=== PATIENT | female | born 1980 | race African-American/Black ===

== ENCOUNTER 2016-07-28 23:45 | Emergency (ER) | payer OTHER ==
[~2016-07-28] VITALS: Ht 167.6 cm; Wt 70.3 kg
[2016-07-29] MEDS ORDERED: NKM (00:04)
[2016-07-29 00:20] VITALS: BP 139/91
[2016-07-29 00:40] LABS: APPEARANCE,URINE CLEAR; KETONES,URINE NEGATIVE (NEGATIVE); LEUKOCYTE ESTERASE ,URINE NEGATIVE (NEGATIVE); NITRITE,URINE NEGATIVE (NEGATIVE); PH,URINE 6.5 (4.5-8.0); PROTEIN,URINE NEGATIVE (NEGATIVE); UROBILINOGEN,URINE 1 MG/DL (0.0-1.0)
[2016-07-29] MEDS ORDERED: PEPCID20 MG ORAL (01:43)
[2016-07-29] MEDS ORDERED: MELOXICAM7.5 MG PO (01:43)
[2016-07-29 02:25] VITALS: BP 139/91
--- NOTE | 2016-07-29 09:02 | Diagnostic Imaging Report ---
Indications: Right knee injury, pain Technique: 3 views right knee. Findings: Comparison: None No fracture, dislocation, joint space widening or effusion , surrounding soft tissue swelling/foreign body/gas, or other acute changes are identified. IMPRESSION: No evidence of acute injury to the right knee.
--- NOTE | 2016-07-29 09:04 | Diagnostic Imaging Report ---
Indications: Right wrist injury, pain Technique: 3 views right wrist. Findings: Comparison: None No fracture, dislocation, joint space widening , surrounding soft tissue swelling/foreign body/gas, or other acute changes are identified. Capitate and hamate are fused. Fusion of the third carpometacarpal joint may be present. The trapezoid appears somewhat hypoplastic. 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
--- NOTE | 2016-07-29 09:05 | Diagnostic Imaging Report ---
Indication: Chest pain Technique: Single AP view of the chest. Findings: Comparison: None. The bones and extra pulmonary soft tissues, cardiomediastinal silhouette, pulmonary vasculature and parenchyma, and pleural surfaces are unremarkable. IMPRESSION: Negative AP chest.
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
== END 2016-07-29 02:25 | disposition home or self-care (01) ==
LOC: EMR 07-29 00:46
DX: S60.211A Contusion of right wrist, initial encounter (principal); S80.01XA Contusion of right knee, initial encounter; Y08.89XA Assault by other specified means, initial encounter; Y92.89 Other specified places as the place of occurrence of the external cause; Y99.0 Civilian activity done for income or pay; Z88.0 Allergy status to penicillin
CPT/HCPCS: 29260; 71010; 81003; 81025; 99284

== ENCOUNTER 2017-11-19 20:50 | Emergency (ER) | payer OTHER ==
[~2017-11-19] VITALS: Ht 167.6 cm; Wt 77.1 kg
[~2017-11-19 20:50] MED LIST: MELOXICAM7.5 MG PO; NKM; PEPCID20 MG ORAL
--- NOTE | 2017-11-19 21:35 | Emergency Room Report ---
History of Present Illness General Chief Complaint: General Complaint Source: Patient Present Illness HPI Is a 36-year-old female with history of back pain/spasm. She presents with chief complaint of left leg numbness and pain. The whole leg is hurting and felt numb. Similar symptom in the past. Also with back pain. Known, as bowel or urine. No trauma. She does have some dysuria and frequency. Pain is 8 out of 10. Worse with walking. Better with rest. Allergies: Coded Allergies: PENICILLINS (Verified Allergy, Unknown, 07/29/16) Patient History Past Medical History: see triage record, old chart reviewed Past Surgical History: Pertinent Family History: none Last Menstrual Period: September Now: No Immunizations: other Reviewed Nursing Documentation: PMH: Agreed; PSxH: Agreed Nursing Documentation-PMH Hx Asthma: Yes - broncitis Review of Systems Eye: Denies: eye pain, blurred vision ENT: Denies: ear pain, nose congestion, throat swelling Respiratory: Denies: cough, shortness of breath Cardiovascular: Denies: chest pain, palpitations Gastrointestinal: Denies: abdominal pain, diarrhea, nausea, vomiting Musculoskeletal: Reports: back pain, muscle pain; Denies: joint pain Skin: Denies: rash Neurological: Denies: headache, numbness Endocrine: Denies: increased thirst, increased urine Hematologic/Lymphatic: Denies: easy bruising All Other Systems: negative except mentioned in HPI Physical Exam Vital Signs Date Time Temp Pulse Resp B/P (MAP) Pulse Ox O2 Delivery O2 Flow Rate FiO2 11/19/17 21:20 98.2 76 16 144/91 100 Room Air 98.2 vitals normal Sp02 EP Interpretation: reviewed, normal General Appearance: well appearing, no apparent distress, alert Head: normocephalic, atraumatic Eyes: bilateral eye PERRL, bilateral eye EOMI ENT: hearing grossly normal, normal pharynx Neck: full range of motion, supple, no meningismus Respiratory: chest non-tender, lungs clear, normal breath sounds Cardiovascular #1: regular rate, rhythm, no murmur Gastrointestinal: normal bowel sounds, non tender, no mass, no organomegaly, no bruit, non-distended Musculoskeletal: back normal - Tenderness to palpation the lower back, gait/ station normal, normal range of motion Neurologic: alert, oriented x3 Psychiatric: mood/affect normal Skin: warm/dry Medical Decision Making Diagnostic Impression: Primary Impression: UTI (urinary tract infection) Qualified Codes: N30.00 - Acute cystitis without hematuria Additional Impression: Lumbar radiculopathy, acute ER Course Patient presents with lumbar radiculopathy. No evidence of cauda equina syndrome, spinal after abscess or neoplastic process. We'll discharge home with pain medication and steroid. She also has a UTI. No evidence of pyelonephritis. Patient may benefit from MRI because of continual and episodic pain. Last Vital Signs Date Time Temp Pulse Resp B/P (MAP) Pulse Ox O2 Delivery O2 Flow Rate FiO2 11/19/17 21:20 98.2 76 16 144/91 100 Room Air 98.2 Status: improved Disposition: HOME, SELF-CARE Condition: Stable Scripts Cephalexin* (KEFLEX*) 500 Mg Capsule 500 MG ORAL TID, #21 CAP Prov: MECHE MATHEW M.D. 11/19/17 Hydrocodone/Acetaminophen 5-325* (HYDROCODONE/ACETAMINOPHEN 5-325*) 1 Each Tablet 1 TAB ORAL Q6H PRN for For Pain, #20 TAB 0 Refills Prov: MECHE MATHEW M.D. 11/19/17 Additional Instructions: Follow-up with your doctor in 7 days for recheck. You may benefit from an MRI if back pain continue. Return if symptom worsen. MECHE MATHEW M.D. Nov 19, 2017 21:35
[2017-11-19] MEDS ORDERED: Norco 5mg/325mg tab ORAL ONE (21:45)
[2017-11-19 21:54] LABS: APPEARANCE,URINE CLOUDY; BILIRUBIN, URINE NEGATIVE (NEGATIVE); COLOR,URINE AMBER; GLUCOSE, URINE (UA) NEGATIVE (NEGATIVE); KETONES,URINE NEGATIVE (NEGATIVE); LEUKOCYTE ESTERASE ,URINE 1+ (NEGATIVE); NITRITE,URINE POSITIVE (NEGATIVE); PH,URINE 5 (4.5-8.0); PROTEIN,URINE 1+ (NEGATIVE); UROBILINOGEN,URINE NORMAL MG/DL (0.0-1.0)
[2017-11-19] MEDS ORDERED: Cephalexin 500mg cap ORAL ONE (22:15)
[2017-11-19] MEDS ORDERED: CEPHALEXIN500 MG ORAL (22:23)
[2017-11-19] MEDS ORDERED: HYDROCODON-ACE1 EA15 ORAL (22:23)
[2017-11-20 00:36] VITALS: BP 144/91
[2017-11-20 00:38] VITALS: BP 0/0
== END 2017-11-19 22:35 | disposition home or self-care (01) ==
LOC: EMR 21:40
DX: N39.0 Urinary tract infection, site not specified (principal); M54.16 Radiculopathy, lumbar region
CPT/HCPCS: 81003; 81025; 87086; 87181; 99283

== ENCOUNTER 2018-02-08 11:25 | Emergency (ER) | payer OTHER ==
[~2018-02-08] VITALS: Ht 167.6 cm; Wt 87.5 kg
[~2018-02-08 11:25] MED LIST changes: +CEPHALEXIN500 MG ORAL; +HYDROCODON-ACE1 EA15 ORAL
[2018-02-08 12:05] VITALS: BP 148/87
[2018-02-08] MEDS ORDERED: BACTRIM DS TAB1 EAC1 ORAL (12:31)
[2018-02-08] MEDS ORDERED: OFLOXACIN5 ML RIGHT EAR (12:31)
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
== END 2018-02-08 12:35 | disposition home or self-care (01) ==
LOC: EMR 12:18
DX: H60.61 Unspecified chronic otitis externa, right ear (principal); Z88.0 Allergy status to penicillin; J45.909 Unspecified asthma, uncomplicated
CPT/HCPCS: 99282

== ENCOUNTER 2018-07-05 09:22 | Emergency (ER) | payer OTHER ==
[~2018-07-05] VITALS: Ht 167.6 cm; Wt 91.6 kg
[~2018-07-05 09:22] MED LIST changes: +BACTRIM DS TAB1 EAC1 ORAL; +OFLOXACIN5 ML RIGHT EAR
[2018-07-05] MEDS ORDERED: NKM (09:30)
[2018-07-05 09:43] VITALS: BP 143/85
[2018-07-05] MEDS ORDERED: Acetaminophen 500mg (ES) tab ORAL ONE (09:45)
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
--- NOTE | 2018-07-05 09:52 | NUR ---
ED Nurse Note: pt walked in from home c/o headache for a few days. ermd eval done will follow orders . pt ambulated to restroom with strong and steady gait.
--- NOTE | 2018-07-05 10:14 | NUR ---
ED Nurse Note: blood and urine sent to lab
[2018-07-05 10:17] VITALS: BP 98/85
[2018-07-05 10:28] LABS: ANION GAP 13 mmol/L (5-15); BLOOD UREA NITROGEN 8 mg/dL (7-18); CALCIUM 8.7 MG/DL (8.5-10.1); CARBON DIOXIDE 24 MMOL/L (21-32); CHLORIDE 104 MMOL/L (98-107); CREATININE 0.9 MG/DL (0.55-1.30); POTASSIUM 3.9 MMOL/L (3.5-5.1); SODIUM 141 MMOL/L (136-145)
[2018-07-05 10:32] LABS: APPEARANCE,URINE CLEAR; BILIRUBIN, URINE NEGATIVE (NEGATIVE); COLOR,URINE PALE YELLOW; GLUCOSE, URINE (UA) NEGATIVE (NEGATIVE); KETONES,URINE NEGATIVE (NEGATIVE); LEUKOCYTE ESTERASE ,URINE NEGATIVE (NEGATIVE); NITRITE,URINE NEGATIVE (NEGATIVE); PH,URINE 6 (4.5-8.0); PROTEIN,URINE NEGATIVE (NEGATIVE); UROBILINOGEN,URINE NORMAL MG/DL (0.0-1.0)
[2018-07-05 10:36] LABS: BASOPHILS % (AUTO) 1.7 % (0.0-2.0); EOSINOPHILS % (AUTO) 10.1 % (0.0-3.0); HEMATOCRIT 38.2 % (37.0-47.0); HEMOGLOBIN 12.5 G/DL (12.0-16.0); LYMPHOCYTES % (AUTO) 42.5 % (20.0-45.0); MEAN CORPUSCULAR VOLUME 87 FL (80-99); MONOCYTES % (AUTO) 7.3 % (1.0-10.0); NEUTROPHILS % (AUTO) 38.4 % (45.0-75.0); PLATELET COUNT 247 K/UL (150-450); RED BLOOD COUNT 4.37 M/UL (4.20-5.40); RED CELL DISTRIBUTION WIDTH 13.2 % (11.6-14.8); WHITE BLOOD COUNT 5.2 K/UL (4.8-10.8)
[2018-07-05 10:41] LABS: ALANINE AMINOTRANSFERASE 18 U/L (12-78); ALBUMIN 3.6 G/DL (3.4-5.0); ALBUMIN/GLOBULIN RATIO 0.9 (1.0-2.7); ALKALINE PHOSPHATASE 74 U/L (46-116); ASPARTATE AMINO TRANSFERASE 12 U/L (15-37); BILIRUBIN,TOTAL 0.4 MG/DL (0.2-1.0); CREATINE KINASE 186 U/L (26-308)
--- NOTE | 2018-07-05 10:45 | NUR ---
ED Nurse Note: notified Dr. Sanchez that UA PREG IS NEG.
--- NOTE | 2018-07-05 10:52 | NUR ---
ED Nurse Note: pt sitting up in bed on monitor and cell phione . pt states pain 5/10 . ermd informed.
--- NOTE | 2018-07-05 10:52 | Diagnostic Imaging Report ---
Indication: Shortness of breath Technique: One view of the chest Comparison: 07/29/2016 Findings: Lungs and pleural spaces are clear. Heart size is normal. No significant interim change Impression: No acute process
[2018-07-05 14:49] VITALS: BP 132/81
--- NOTE | 2018-07-05 14:49 | NUR ---
ED Nurse Note: pt back from imaging.
--- NOTE | 2018-07-05 14:58 | Diagnostic Imaging Report ---
Indication: Headache for 3 days, hypertension Technique: sagittal T1 fast spin echo, axial T1 FLAIR, axial T2 FLAIR, axial T2 FS PROPELLER, axial T2* GRE, axial diffusion weighted images. ADC and exponential ADC maps generated Comparison: none Findings: No abnormal areas of restricted diffusion to suggest acute infarction. No acute hemorrhage or edema. No mass effect nor midline shift. Normal size ventricles and extra axial CSF spaces. There is near complete opacification of the right maxillary sinus. Extensive disease is seen in the sphenoid and ethmoid sinuses as well. Occasional punctate foci of deep white matter high T2 signal are demonstrated bilaterally. Impression: Negative for acute intracranial bleed, mass effect, or infarct There are a few nonspecific bilateral T2 hyperintensities Sinus disease
[2018-07-05] MEDS ORDERED: TRAMADOL HCL50 MG ORAL (15:12)
[2018-07-05 15:27] VITALS: BP 135/82
--- NOTE | 2018-07-05 15:28 | NUR ---
ER DISCHARGE NOTE: Patient is cleared to be discharged per ERMD, pt is aox4, on room air, with stable vital signs. pt was given dc and prescription instructions, pt was able to verbalize understanding, pt id band and iv site removed without complications. pt is able to ambulate with steady gait. pt took all belongings.
== END 2018-07-05 15:28 | disposition home or self-care (01) ==
LOC: EMR 09:48
DX: G44.209 Tension-type headache, unspecified, not intractable (principal); M71.22 Synovial cyst of popliteal space [Baker], left knee; H72.91 Unspecified perforation of tympanic membrane, right ear; F43.9 Reaction to severe stress, unspecified; I10 Essential (primary) hypertension; Z88.0 Allergy status to penicillin; J32.9 Chronic sinusitis, unspecified
CPT/HCPCS: 36415; 70551; 71045; 80053; 81003; 81025; 82550; 84443; 84484; 85025; 85610; 85651; 85730; 93005; 99284

== ENCOUNTER 2018-11-05 12:58 | Emergency (ER) | payer OTHER ==
[~2018-11-05] VITALS: Ht 167.6 cm; Wt 90.7 kg
[~2018-11-05 12:58] MED LIST changes: +TRAMADOL HCL50 MG ORAL
--- NOTE | 2018-11-05 13:10 | NUR ---
ED Nurse Note: PT WALKED IN TO ER TODAY FROM HOME. AOX4. PT C/O LEFT ANKLE PAIN, 5/10 AT REST, AFTER TWISTING IT YESTERDAY AROUND 1700. PT STATES PAIN IS EXACERBATED BY ACTIVITY. PT STATES SHE TRIED EPSOM SALT SOAK AND LIDOCAINE TOPICAL CREAM WITHOUT RELIEF. FULL ROM OF ANKLE BUT WITH PAIN. FULL ROM OF DIGITS, CIRCULATION AND SENSATION INTACT, CAP REFILL <2 SECONDS, 5/5 MUSCLE STRENGTH OF FOOT. NO OBVIOUS DEFORMITY.
[2018-11-05] MEDS ORDERED: HYDROcodone/Acetamin 5/325 tab ORAL ONE (13:30)
--- NOTE | 2018-11-05 13:30 | NUR ---
ED Nurse Note: RADIOLOGY CALLED FOR XRAY.
--- NOTE | 2018-11-05 13:39 | NUR ---
ED Nurse Note: XRAY AT BEDSIDE.
--- NOTE | 2018-11-05 13:54 | Emergency Room Report ---
History of Present Illness General Chief Complaint: Lower Extremity Injury Source: Patient Present Illness HPI 37-year-old female presents to the emergency department complaining of 8 out of 10 severity localized left lateral ankle pain with swelling and tenderness in addition to left wrist pain status post mechanical trip and fall this morning. Patient denies hitting her head she denies having a loss of consciousness she denies midline neck or back pain. Denies numbness tingling or loss of sensation or gross motor movements of the extremities, incontinence of bowel or bladder. Denies CP, Palpitations, LOC, AMS, dizziness, Changes in Vision, weakness or a sudden severe headache. Reports bearing weight and attempts to ambulate exacerbate her pain however she states she is ambulatory without assistance. Previous injury to the extremity denies open wounds or bleeding denies bruises. No other aggravating or relieving factors. Allergies: Coded Allergies: PENICILLINS (Verified Allergy, Unknown, 07/05/18) Patient History Past Medical History: see triage record Past Surgical History: none Pertinent Family History: none Last Menstrual Period: Depo shot Reviewed Nursing Documentation: PMH: Agreed; PSxH: Agreed Nursing Documentation-PMH Past Medical History: No Stated History Hx Asthma: Yes - broncitis Hx Gastrointestinal Problems: Yes - GASTRIC ULCERS Review of Systems All Other Systems: negative except mentioned in HPI Physical Exam Vital Signs Date Time Temp Pulse Resp B/P (MAP) Pulse Ox O2 Delivery O2 Flow Rate FiO2 11/05/18 13:11 98.1 104 18 127/81 (96) 96 Room Air Sp02 EP Interpretation: reviewed, normal General Appearance: no apparent distress, alert, GCS 15, non-toxic Head: normocephalic, atraumatic Eyes: bilateral eye normal inspection, bilateral eye PERRL ENT: hearing grossly normal, normal voice Neck: full range of motion Respiratory: lungs clear, normal breath sounds, speaking full sentences Cardiovascular #1: regular rate, rhythm, normal capillary refill Cardiovascular #2: 2+ radial (R), 2+ radial (L), 2+ dorsalis pedis (R), 2+ dorsalis pedis (L) Musculoskeletal: back normal, gait/station normal, normal range of motion, tender - Left lateral ankle, swelling noted, FROM with pain. TTP to the left latleral wrist too, no Snuff box ttp, FROm with pain. Pt. NVI. No obvious deformities. Neurologic: alert, oriented x3, responsive, motor strength/tone normal, sensory intact, speech normal, grossly normal Psychiatric: judgement/insight normal Lymphatic: no adenopathy Medical Decision Making BENEDICTO Gupta is my supervising Physician whom patient management has been discussed with. Diagnostic Impression: Primary Impression: Left ankle sprain Qualified Codes: S93.402A - Sprain of unspecified ligament of left ankle, initial encounter Additional Impression: Left wrist sprain Qualified Codes: S63.502A - Unspecified sprain of left wrist, initial encounter ER Course 37-year-old female presents to the emergency department complaining of 8 out of 10 severity localized left lateral ankle pain with swelling and tenderness in addition to left wrist pain status post mechanical trip and fall this morning. Patient denies hitting her head she denies having a loss of consciousness she denies midline neck or back pain. Denies numbness tingling or loss of sensation or gross motor movements of the extremities, incontinence of bowel or bladder. Denies CP, Palpitations, LOC, AMS, dizziness, Changes in Vision, weakness or a sudden severe headache. Reports bearing weight and attempts to ambulate exacerbate her pain however she states she is ambulatory without assistance. Previous injury to the extremity denies open wounds or bleeding denies bruises. No other aggravating or relieving factors. Ddx considered but are not limited to Fracture, dislocation, contusion, Sprain/ Strain/Spasm, Vital signs: are WNL, pt. is afebrile H&PE are most consistent with musculoskeletal injury will perform imaging to r/ o fractures/dislocations. --Patient is in no acute distress nontoxic in appearance no evidence of cauda equina syndrome. Negative snuffbox tenderness. ORDERS: - X-ray Left ankle 3 views & left wrist 3 views - negative for fx, Dislocation , or significant soft tissue injury, per preliminary read in ED, and signed by BENEDICTO Tucker, my supervising physician has reviewed, and agrees with my interpretation. ED INTERVENTIONS: - [place] PO -Bill wrap applied to the left ankle by inside technical sales representative. Pt. remains neurovascularly intact. -Patient is provided with crutches and instructed on their use -I do not identify an emergent condition at this time. With current presentation , pt. is stable for close outpatient follow up and conservative treatment. D/ w pt. to return promptly to ED with worsening or new symptoms.- Pt. verbalizes' understanding and agreement with proposed treatment plan. DISCHARGE: At this time pt. is stable for d/c to home. Will provide printed patient care instructions, and any necessary prescriptions. Care plan and follow up instructions have been discussed with the patient prior to discharge. Other X-Ray Diagnostic Results Other X-Ray Diagnostic Results #1: X-Ray ordered: Left Ankle # of Views/Limited Vs Complete: 3 View Indication: Pain EP Interpretation: Yes BENEDICTO Xray: Interpretation reviewed, by supervising MD, and agrees with findings. Interpretation: no dislocation, no soft tissue swelling, no fractures Impression: No acute disease Electronically Signed by: Kortney Tucker PA-C Other X-Ray Diagnostic Results #2: X-Ray ordered: Left Wrist # of Views/Limited Vs Complete: 3 View Indication: Pain EP Interpretation: Yes BENEDICTO Xray: Interpretation reviewed, by supervising MD, and agrees with findings. Interpretation: no dislocation, no soft tissue swelling, no fractures Impression: No acute disease Electronically Signed by: Kortney Tucker PA-C Last Vital Signs Date Time Temp Pulse Resp B/P (MAP) Pulse Ox O2 Delivery O2 Flow Rate FiO2 11/05/18 13:11 98.1 104 18 127/81 (96) 96 Room Air Status: improved Disposition: HOME, SELF-CARE Condition: Stable Scripts Ibuprofen* (MOTRIN*) 600 Mg Tablet 600 MG ORAL THREE TIMES A DAY, #30 TAB 0 Refills Prov: Kortney Tucker 11/05/18 Referrals: [facility]ERR[facility] (PCP) Patient Instructions: Ankle Sprain Additional Instructions: Take medications as directed. Follow up with a Primary Care Provider in 3-5 days, even if your symptoms have resolved. --Please review list of primary care clinics, if you do not already have a primary care provider Return sooner to ED if new symptoms occur, or current symptoms become worse. - Please note that this Emergency Department Report was dictated using HITbill[employer] handling supervisor technology software, occasionally this can lead to erroneous entry secondary to interpretation by the dictation equipment. Kortney Tucker Nov 05, 2018 13:54
[2018-11-05] MEDS ORDERED: IBUPROFEN600 MG ORAL (14:19)
--- NOTE | 2018-11-05 14:37 | NUR ---
ED Nurse Note: PT LAYING PEACEFULLY IN BED IN NAD. AOX4. PRESCRIPTION AND DISCHARGE PAPERWORK EXPLAINED TO PT. PT VERBALIZES UNDERSTANDING AND ALL QUESTIONS ANSWERED. PRESCRIPTION AND DISCHARGE PAPERWORK GIVEN TO PT AND ID WRISTBAND REMOVED. PT EDUCATED ON PROPER USE OF CRUTCHES. PT ABLE TO DEMONSTRATE BACK AMBULATION WITH PROPER USE OF ASSISTIVE DEVICE. PT WALKED OUT OF ER WITH STEADY GAIT WITH PROPER USE OF ASSISTIVE DEVICE WITH ALL BELONGINGS ACCOMPANIED BY COUSIN.
[2018-11-05 14:38] VITALS: BP 124/82
--- NOTE | 2018-11-06 13:47 | Diagnostic Imaging Report ---
Indication: Left wrist pain Findings: 3 views of the left wrist were obtained. No acute fractures, malalignment, erosions or periostitis are identified. Soft tissues are unremarkable. Impression: No acute findings.
--- NOTE | 2018-11-06 13:48 | Diagnostic Imaging Report ---
Indication: left ankle pain Comparison: None Findings: 3 views of the left ankle obtained. Soft tissues are unremarkable. No acute fracture, malalignment, periostitis, or osteochondral defects are identified. There is an osteophyte or ossicle at the talonavicular joint on the medial side. This is likely degenerative but may have a traumatic basis from an old injury. Impression: No acute findings
== END 2018-11-05 14:39 | disposition home or self-care (01) ==
LOC: EMR 13:20
DX: S93.402A Sprain of unspecified ligament of left ankle, initial encounter (principal); S63.502A Unspecified sprain of left wrist, initial encounter; W01.0XXA Fall on same level from slipping, tripping and stumbling without subsequent striking against object, initial encounter; Y93.9 Activity, unspecified; Y92.9 Unspecified place or not applicable; Z88.0 Allergy status to penicillin
CPT/HCPCS: 99283

== ENCOUNTER 2019-03-07 17:47 | Emergency (ER) | payer OTHER ==
[~2019-03-07] VITALS: Ht 167.6 cm; Wt 90.7 kg
[~2019-03-07 17:47] MED LIST changes: +IBUPROFEN600 MG ORAL
--- NOTE | 2019-03-07 18:19 | Emergency Room Report ---
History of Present Illness General Chief Complaint: Earache Source: Patient Present Illness HPI 38 Yo female presents to the ED c/o right ear pain, pressure, ST, increased nasal congestion and mucus x 3 days. 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 She reports constant ear itching where she habitually uses q-tips to provide temporarily relief. PT. Reports increased ear wax/ dc. She denies blood, swollen tender lymph nodes or rashes. She reports subjective fevers/ chills. Denies cough. She denies neck pain/stiffness, MESA, photophobia or SOB or wheezing. Allergies: Coded Allergies: PENICILLINS (Verified Allergy, Unknown, 07/05/18) Patient History Past Medical History: see triage record Past Surgical History: none Pertinent Family History: none Last Menstrual Period: CURRENTLY ON HER PERIOD Now: No Reviewed Nursing Documentation: PMH: Agreed; PSxH: Agreed Nursing Documentation-PMH Past Medical History: No History, Except For Hx Asthma: Yes - broncitis Hx Gastrointestinal Problems: Yes - GASTRIC ULCERS Review of Systems All Other Systems: negative except mentioned in HPI Physical Exam Vital Signs Date Time Temp Pulse Resp B/P (MAP) Pulse Ox O2 Delivery O2 Flow Rate FiO2 03/07/19 17:59 99.0 94 16 127/75 (92) 96 Room Air Sp02 EP Interpretation: reviewed, normal General Appearance: no apparent distress, alert, GCS 15, non-toxic Head: normocephalic, atraumatic Eyes: bilateral eye normal inspection, bilateral eye PERRL ENT: hearing grossly normal, normal pharynx, normal voice, uvula midline, moist mucus membranes, nasal congestion, other - Right tM is opaque with a ruptured portion that appears to have some thin milky d/c, no increased cerumen , There is visible TM erythema. the TM appears bulging. no Pre auricular LAD, no posterior LAD or ttp to suggest mastoiditis. the canal is WNL. Neck: full range of motion Respiratory: lungs clear, normal breath sounds, no respiratory distress, no accessory muscle use, no wheezing, speaking full sentences Cardiovascular #1: regular rate, rhythm, normal capillary refill Musculoskeletal: back normal, normal range of motion, gait/station normal, non- tender Neurologic: alert, motor strength/tone normal, oriented x3, sensory intact, responsive, speech normal Psychiatric: judgement/insight normal Skin: no rash, normal color, normal inspection Lymphatic: no adenopathy Medical Decision Making PA Attestation Dr. Valera is my supervising Physician whom patient management has been discussed with. Diagnostic Impression: Primary Impression: Otitis media Qualified Codes: H66.90 - Otitis media, unspecified, unspecified ear Additional Impressions: Tympanic membrane perforation Qualified Codes: H72.91 - Unspecified perforation of tympanic membrane, right ear Nasal congestion with rhinorrhea ER Course 38 Yo female presents to the ED c/o right ear pain, pressure, ST, increased nasal congestion and mucus x 3 days. 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 She reports constant ear itching where she habitually uses q-tips to provide temporarily relief. PT. Reports increased ear wax/ dc. She denies blood, swollen tender lymph nodes or rashes. She reports subjective fevers/ chills. Denies cough. She denies neck pain/stiffness, MESA, photophobia or SOB or wheezing. Ddx considered but are not limited to OM, OE, mastoiditis, TM perforation, FB, sinusitis Vital signs: are WNL, pt. is afebrile H&PE are most consistent with Right otitis media, and visible TM perf. in addition to secondary nasal congestion/ rhinitis. ORDERS: none required at this time, the diagnosis is clinical -OTOSCOPY: Right TM is erythematous and bulging with visible perf. ED INTERVENTIONS: None required at this time. DISCHARGE: At this time pt. is stable for d/c to home. With PO ABX. Will provide printed patient care instructions, and any necessary prescriptions. Care plan and follow up instructions have been discussed with the patient prior to discharge. Last Vital Signs Date Time Temp Pulse Resp B/P (MAP) Pulse Ox O2 Delivery O2 Flow Rate FiO2 03/07/19 17:59 99.0 94 16 127/75 (92) 96 Room Air Disposition: HOME, SELF-CARE Condition: Stable Scripts Cetirizine Hcl* (ZYRTEC*) 10 Mg Tablet 10 MG ORAL DAILY, #30 TAB 0 Refills Prov: Kortney Tucker 03/07/19 Pseudoephedrine Hcl* (NEXAFED*) 30 Mg Tablet 30 MG ORAL Q6H PRN for congestion, #20 TAB Prov: Kortney Tucker 03/07/19 Acetaminophen* (TYLENOL EXTRA STRENGTH*) 500 Mg Tablet 500 MG ORAL Q6H PRN for Mild Pain/Temp > 100.5, #30 TAB 0 Refills Prov: Kortney Tucker 03/07/19 Azithromycin* (ZITHROMAX*) 250 Mg Tablet 250 MG ORAL DAILY, #6 TAB 0 Refills Take two tables once daily for 1 day, then one tablet once daily for 4 days. 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 Return to Full Activity: Mar 08, 2019 Patient Instructions: Eardrum Perforation, [id number], Otitis Media, Adult Additional Instructions: Take medications as directed. Follow up with an ENT SPECIALIST within 3-5 days, even if your symptoms have resolved. Return sooner to ED if new symptoms occur, or current symptoms become worse. - Please note that this Emergency Department Report was dictated using App.netdigital media coordinator technology software, occasionally this can lead to erroneous entry secondary to interpretation by the dictation equipment. Kortney Tucker Mar 07, 2019 18:19
[2019-03-07 18:34] VITALS: BP 127/75
[2019-03-07] MEDS ORDERED: NEXAFED30 MG ORAL (18:36)
[2019-03-07] MEDS ORDERED: TYLENOL EXTRA500 MG ORAL (18:36)
[2019-03-07] MEDS ORDERED: ZYRTEC10 MG ORAL (18:36)
[2019-03-07] MEDS ORDERED: ZITHROMAX250 MG ORAL (18:36)
[2019-03-07 18:44] VITALS: BP 127/75
== END 2019-03-07 22:00 | disposition home or self-care (01) ==
LOC: EMR 21:31
DX: H66.91 Otitis media, unspecified, right ear (principal); H72.91 Unspecified perforation of tympanic membrane, right ear; R09.81 Nasal congestion; Z88.0 Allergy status to penicillin
CPT/HCPCS: 99282

== ENCOUNTER 2019-05-13 13:46 | Emergency (ER) | payer OTHER ==
[~2019-05-13] VITALS: Ht 167.6 cm; Wt 96.2 kg
[~2019-05-13 13:46] MED LIST changes: +NEXAFED30 MG ORAL; +TYLENOL EXTRA500 MG ORAL; +ZITHROMAX250 MG ORAL; +ZYRTEC10 MG ORAL
[2019-05-13] MEDS ORDERED: Omnipaque-300 100ml vial INJ PRN (14:15)
[2019-05-13] MEDS ORDERED: Morphine Sulfate 4mg/ml Inj (IV USE ONLY) IVP ONE (14:15)
--- NOTE | 2019-05-13 14:18 | Emergency Room Report ---
History of Present Illness General Chief Complaint: Abdominal Pain Source: Patient Present Illness HPI Disclaimer: Please note that this report is being documented using [employer] technology. This can lead to erroneous entry secondary to incorrect interpretation by the dictating instrument. HPI: 38-year-old female presents for evaluation of abdominal pain. Symptoms began yesterday. She describes a generalized abdominal pain that is since settled into the right lower quadrant. It is sharp and stabbing in /. Exacerbated by bending and twisting movements as well as coughing and sneezing. She denies nausea, vomiting, dysuria, hematuria but does note urinary frequency. Denies flank pain. Has not taken any medication prior to arrival. Has a history of 3 sections but no other abdominal surgeries. Denies any urinary retention or diarrhea. PMH: Denies PSH: section x3 Allergies: Penicillin Social Hx: Occasional THC Allergies: Coded Allergies: PENICILLINS (Verified Allergy, Unknown, 07/05/18) Patient History Last Menstrual Period: 05/01/19 Nursing Documentation-PMH Hx Asthma: Yes - broncitis Hx Gastrointestinal Problems: Yes - GASTRIC ULCERS Review of Systems All Other Systems: negative except mentioned in HPI Physical Exam Vital Signs Date Time Temp Pulse Resp B/P (MAP) Pulse Ox O2 Delivery O2 Flow Rate FiO2 05/13/19 14:02 98.4 86 17 147/99 (115) 98 Room Air General: Awake and alert, appears uncomfortable HEENT: NC/AT. EOMI. Neck: Supple, trachea midline Chest Wall: No tenderness, no deformity Cardiovascular: RRR. S1 and S2 normal. No murmur appreciated Resp: Normal work of breathing. No cough, wheezing or crackles appreciated Abdomen: Abdomen is soft, nondistended. Tenderness palpation in the right lower quadrant with positive rebound and positive Rovsing sign. Negative for psoas and obturator sign. Positive for tenderness with percussion of the lower extremity. Mild suprapubic tenderness as well. No tenderness in the upper quadrants. Skin: Intact. No abrasions, laceration or rash over the exposed skin MSK: Normal tone and bulk. Moving all extremities. No obvious deformity. Neuro: Awake and alert. Mentating appropriately. Medical Decision Making Diagnostic Impression: Primary Impression: Abdominal pain ER Course This is a 38-year-old female presenting for evaluation of abdominal pain beginning last evening. Differential includes was not limited to appendicitis, ovarian torsion, ovarian cyst, UTI, pyelonephritis, cholecystitis, pancreatitis , abdominal obstruction. Appendicitis highest on differential at this time given the patient's clinical presentation. Will obtain broad labs and sent for CT scan of the abdomen with IV contrast. Will give IV fluids, pain medication, antiemetics. Laboratory Tests Test 05/13/19 14:35 05/13/19 15:37 White Blood Count 7.9 K/UL (4.8-10.8) Red Blood Count 4.42 M/UL (4.20-5.40) Hemoglobin 12.7 G/DL (12.0-16.0) Hematocrit 38.3 % (37.0-47.0) Mean Corpuscular Volume 87 FL (80-99) Mean Corpuscular Hemoglobin 28.8 PG (27.0-31.0) Mean Corpuscular Hemoglobin Concent 33.2 G/DL (32.0-36.0) Red Cell Distribution Width 12.6 % (11.6-14.8) Platelet Count 251 K/UL (150-450) Mean Platelet Volume 6.5 FL (6.5-10.1) Neutrophils (%) (Auto) 44.6 % (45.0-75.0) L Lymphocytes (%) (Auto) 39.7 % (20.0-45.0) Monocytes (%) (Auto) 4.8 % (1.0-10.0) Eosinophils (%) (Auto) 9.4 % (0.0-3.0) H Basophils (%) (Auto) 1.6 % (0.0-2.0) Sodium Level 141 MMOL/L (136-145) Potassium Level 4.1 MMOL/L (3.5-5.1) Chloride Level 104 MMOL/L (98-107) Carbon Dioxide Level 26 MMOL/L (21-32) Anion Gap 11 mmol/L (5-15) Blood Urea Nitrogen 8 mg/dL (7-18) Creatinine 0.9 MG/DL (0.55-1.30) Estimate Glomerular Filtration Rate > 60 mL/min (>60) Glucose Level 80 MG/DL (74-106) Calcium Level 9.5 MG/DL (8.5-10.1) Total Bilirubin 0.6 MG/DL (0.2-1.0) Aspartate Amino Transferase (AST) 19 U/L (15-37) Alanine Aminotransferase (ALT) 25 U/L (12-78) Alkaline Phosphatase 76 U/L (46-116) Total Protein 7.5 G/DL (6.4-8.2) Albumin 3.7 G/DL (3.4-5.0) Globulin 3.8 g/dL Albumin/Globulin Ratio 1.0 (1.0-2.7) Lipase 77 U/L (73-393) Urine Color Pale yellow Urine Appearance Clear Urine pH 7 (4.5-8.0) Urine Specific [place] 1.005 (1.005-1.035) Urine Protein Negative (NEGATIVE) Urine Glucose (UA) Negative (NEGATIVE) Urine Ketones Negative (NEGATIVE) Urine Blood Negative (NEGATIVE) Urine Nitrite Negative (NEGATIVE) Urine Bilirubin Negative (NEGATIVE) Urine Urobilinogen Normal MG/DL (0.0-1.0) Urine Leukocyte Esterase Negative (NEGATIVE) Urine HCG, Qualitative Negative (NEGATIVE) CT/MRI/US Diagnostic Results CT/MRI/US Diagnostic Results : Impression reliminary Findings Only See Final Report For Complete Findings CT ABDOMEN & PELVIS With Contrast: Mild hepatomegaly and parenchymal steatosis. No GI or urinary tract obstruction. Unremarkable appendix. Trace free pelvic fluid may be physiologic Radiologist: River Irwin M.D. Study ready at 16:43 and initial results transmitted at 18:16 Reevaluation Time: 18:22 Last Vital Signs Date Time Temp Pulse Resp B/P (MAP) Pulse Ox O2 Delivery O2 Flow Rate FiO2 05/13/19 14:02 98.4 86 17 147/99 (115) 98 Room Air Reevaluation Impression Labs are returned within normal limits. No white count, normal renal function, no other abnormalities appreciated. CT scan shows a normal appendix, no evidence of obstruction or otherwise is unremarkable. The patient is significantly improved after receiving antiemetics, IV fluids and pain medications. May be a viral syndrome but no evidence of acute surgical issues at this time. Patient is feeling well and would like to be discharged home. She can follow-up with her PMD. I discussed to return to the emergency department with any new or worsening symptoms. She understands and agrees with this treatment plan. Will discharge with [facility]. Disposition: HOME, SELF-CARE Condition: Improved Scripts Ondansetron Odt* (ZOFRAN ODT*) 4 Mg Tab.rapdis 4 MG BC EVERY 6 HOURS PRN for Nausea & Vomiting, #10 TAB 0 Refills Prov: Yonathan Gupta MD 05/13/19 Yonathan Gupta MD May 13, 2019 14:18
[2019-05-13 15:02] LABS: BASOPHILS % (AUTO) 1.6 % (0.0-2.0); EOSINOPHILS % (AUTO) 9.4 % (0.0-3.0); HEMATOCRIT 38.3 % (37.0-47.0); HEMOGLOBIN 12.7 G/DL (12.0-16.0); LYMPHOCYTES % (AUTO) 39.7 % (20.0-45.0); MEAN CORPUSCULAR VOLUME 87 FL (80-99); MONOCYTES % (AUTO) 4.8 % (1.0-10.0); NEUTROPHILS % (AUTO) 44.6 % (45.0-75.0); PLATELET COUNT 251 K/UL (150-450); RED BLOOD COUNT 4.42 M/UL (4.20-5.40); RED CELL DISTRIBUTION WIDTH 12.6 % (11.6-14.8); WHITE BLOOD COUNT 7.9 K/UL (4.8-10.8)
[2019-05-13 15:16] LABS: ANION GAP 11 mmol/L (5-15); BLOOD UREA NITROGEN 8 mg/dL (7-18); CALCIUM 9.5 MG/DL (8.5-10.1); CARBON DIOXIDE 26 MMOL/L (21-32); CHLORIDE 104 MMOL/L (98-107); CREATININE 0.9 MG/DL (0.55-1.30); POTASSIUM 4.1 MMOL/L (3.5-5.1); SODIUM 141 MMOL/L (136-145)
[2019-05-13 15:21] LABS: ALANINE AMINOTRANSFERASE 25 U/L (12-78); ALBUMIN 3.7 G/DL (3.4-5.0); ALKALINE PHOSPHATASE 76 U/L (46-116); ASPARTATE AMINO TRANSFERASE 19 U/L (15-37); BILIRUBIN,TOTAL 0.6 MG/DL (0.2-1.0)
[2019-05-13 16:03] LABS: APPEARANCE,URINE CLEAR; BILIRUBIN, URINE NEGATIVE (NEGATIVE); COLOR,URINE PALE YELLOW; GLUCOSE, URINE (UA) NEGATIVE (NEGATIVE); KETONES,URINE NEGATIVE (NEGATIVE); LEUKOCYTE ESTERASE ,URINE NEGATIVE (NEGATIVE); NITRITE,URINE NEGATIVE (NEGATIVE); PH,URINE 7 (4.5-8.0); PROTEIN,URINE NEGATIVE (NEGATIVE); UROBILINOGEN,URINE NORMAL MG/DL (0.0-1.0)
--- NOTE | 2019-05-13 16:27 | NUR ---
ED Nurse Note: pt relates pain improved and to ct scan. no n/v
--- NOTE | 2019-05-13 16:51 | NUR ---
ED Nurse Note: pt remains without n/v/abd pain at this time. awaiting dispo
[2019-05-13 16:54] VITALS: BP 126/72
--- NOTE | 2019-05-13 17:47 | NUR ---
ED Nurse Note: reeval by md, aware awaiting further eval of ct results. remains comfortable
--- NOTE | 2019-05-13 18:17 | Diagnostic Imaging Report ---
Clinical Indication: Abdominal pain, generalized, and then settling in the right lower quadrant, 10 out of 10 Technique: No oral contrast utilized, per emergency room physician request IV administration nonionic contrast. Venous phase spiral acquisition obtained through the abdomen and pelvis. Multiplanar reconstructions were generated. Total dose length product 624 mGycm. CTDIvol(s) 10 mGy. Dose reduction achieved using automated exposure control Comparison: none Findings: The appendix is normal. No evidence of colonic diverticulosis or diverticulitis. No small bowel distention. Distal esophagus, stomach, duodenum are unremarkable. No free or loculated intraperitoneal gas or fluid is evident. Subcentimeter low-attenuation lesion is seen in segment 7 of the right hepatic lobe. The liver is lower in attenuation than the spleen, suggesting mild hepatic steatosis. Gallbladder, bile ducts, pancreas, spleen, adrenals, kidneys are all unremarkable. No retroperitoneal or mesenteric mass or adenopathy. No pelvic mass or adenopathy. Uterus and ovaries appear unremarkable. The included lung bases are clear. The bones are unremarkable. Impression: No acute abnormality Mild hepatic steatosis Subcentimeter low-attenuation right lobe liver lesion, too small to characterize, most likely benign simple cyst or bile hamartoma. No further follow-up necessary This agrees with the preliminary interpretation provided overnight by [facility] teleradiology service. The CT scanner at [facility] is accredited by the [employer] and the scans are performed using protocols designed to limit radiation exposure to as low as reasonably achievable to attain images of sufficient resolution adequate for diagnostic evaluation.
[2019-05-13] MEDS ORDERED: ONDANSETRON ODT4 MG BC (18:21)
[2019-05-13 18:36] VITALS: BP 128/63
--- NOTE | 2019-05-13 18:38 | NUR ---
ED Nurse Note: Pt cleared by health care Provider for discharge. DC instructions/prescription was given and explained to pt and verbalized understanding of teachings. All medical devices such as ID band removed. Pt is AAO x4, ambulatory and left with all personal belongings. iv out intactly
== END 2019-05-13 18:39 | disposition home or self-care (01) ==
LOC: EMR 14:20
DX: R10.9 Unspecified abdominal pain (principal); R05 Cough; Z88.0 Allergy status to penicillin
CPT/HCPCS: 36415; 74177; 80053; 81003; 81025; 83690; 85025; 96361; 96374; 96375; J2270; J2405; J7030; Q9967; Z7502; 99284